=== PATIENT | male | born 1990 | race Caucasian/White ===

== ENCOUNTER 2018-04-19 01:36 | Emergency (ER) | payer OTHER ==
[~2018-04-19] VITALS: Ht 180.3 cm; Wt 72.6 kg
[2018-04-19] MEDS ORDERED: ADVIL100 M1 (01:55)
[2018-04-19] MEDS ORDERED: PANADOL EXTRA500 MG (01:55)
== END 2018-04-19 16:13 | disposition home or self-care (01) ==
LOC: ER 01:36
DX: K52.89 Other specified noninfective gastroenteritis and colitis (principal)